=== PATIENT | female | born 1965 | race Caucasian/White ===

== ENCOUNTER 2017-03-07 00:40 | Emergency (ER) | payer OTHER ==
[~2017-03-07] VITALS: Ht 165.1 cm; Wt 70.0 kg
[2017-03-07 00:50] VITALS: BP 128/82
== END 2017-03-07 03:00 | disposition left against medical advice (07) ==
LOC: ER 00:40
DX: Z53.21 Procedure and treatment not carried out due to patient leaving prior to being seen by health care provider (principal)